=== PATIENT | female | born 1995 | race Caucasian/White ===

== ENCOUNTER → 2018-02-23 18:35 | Outpatient (CLI) | payer MEDICAID, SELFPAY ==
[2018-02-23 21:28] LABS: Chlamydia Trachomatis by PCR Negative (Negative); Neisserai gonorrhoeae by PCR Negative (Negative); Probe Check PASS; Sample Adequacy Control PASS; Specimen Processing Control PASS
== END ==
PROVIDERS: Family Provider Pediatrics; PCP Pediatrics; Visit Provider Obstetrics & Gynecology
DX: Z12.4 Encounter for screening for malignant neoplasm of cervix (principal); Z32.01 Encounter for pregnancy test, result positive; Z11.3 Encounter for screening for infections with a predominantly sexual mode of transmission
CPT/HCPCS: 87491; 87591; 88175; G0145

== ENCOUNTER → 2018-03-02 16:16 | Outpatient (CLI) | payer MEDICAID, SELFPAY ==
[2018-03-02 17:46] LABS: Absolute Lymphocyte Count 2.24 X10^3/ul (0.83-4.51); Absolute Neutrophil Count 6.6 X10^3/uL (2.0-7.7); Basophil# 0.02 X10^3/uL; Basophil% 0.2 % (0-1); Eosinophil# 0.19 X10^3/uL; Hematocrit 41.6 % (37-47); Lymphocyte # 2.24 X10^3/ul (4.0); Lymphocyte % 23.2 % (19-41); Mean Corp Hgb Conc 33.7 g/gl (32-36); Mean Corpuscular Hgb 29.7 pg (27.0-32.0); Mean Corpuscular Volume 88.3 fL (81-99); Mean Platelet Vol. 11.8 fl (6.2-12.0); Monocyte# 0.57 X10^3/uL; Monocyte% 5.9 % (0-10); Neutrophil # 6.63 X10^3/uL (2.7-7.7); Neutrophil % 68.5 % (47-70); Platelet Count 219 K/mm3 (150-450); RBC Distribution Width SD 42.1 fl (35.1-43.9); Red Blood Count 4.71 M/mm3 (4.2-5.4); White Blood Count 9.7 K/mm3 (4.4-11.0)
[2018-03-02 17:47] LABS: Color, Urine Yellow (Yellow); Glucose, Dipstick Normal (Normal); Ketone-Dipstick 15 mg/dl (Negative); Leukocyte Esterase-Dipstick 25 /ul (Negative); Nitrite-Dipstick Negative (Negative); Occult Blood-Urine Negative /ul (Negative); Protein-Dipstick 15 mg/dl (Negative); Specific Gravity, Urine 1.025 (1.002-1.030); Urine Bilirubin Dipstick Negative (Negative); Urine Clarity Turbid (Clear); Urine Urobilinogen 4 mg/dl (Normal)
[2018-03-02 17:50] LABS: POSITIVE COUNT NO; POSITIVE DIFFERENTIAL NO; POSITIVE MORPHOLOGY NO
[2018-03-02 18:12] LABS: COTININE Drug Screen Positive (<200 ng/mL)
[2018-03-02 18:14] LABS: Amphetamine Urine VISTA NEGATIVE (<1000 ng/mL); Barbiturate Urine VISTA NEGATIVE (< 200 ng/mL); Benzodiazepine Urine VISTA NEGATIVE (< 200 ng/mL); Cocaine Urine VISTA NEGATIVE (< 300 ng/mL); Ecstacy Urine VISTA NEGATIVE (< 500 ng/mL); Methadone Urine VISTA NEGATIVE (< 300 ng/mL); PCP Urine VISTA NEGATIVE (< 25 ng/mL); THC Urine VISTA NEGATIVE (< 50 ng/mL); Vista UDS pH Range 5
[2018-03-02 18:38] LABS: Thyroid Stim Hormone (TSH) 0.43 uIU/mL (0.358-3.74)
[2018-03-02 19:16] LABS: HIV - WCH Non-Reactive (Nonreactive); Rubella IgG 34.7 IU/mL
[2018-03-04 01:05] LABS: Prenatal RPR NONREACTIVE (NONREACTIVE)
[2018-03-04 12:03] LABS: HEPATITIS B SURFACE AG Negative (Negative); Hep C Antibodies <0.1 s/co ratio (0.0-0.9)
== END ==
PROVIDERS: Visit Provider Obstetrics & Gynecology
DX: Z34.81 Encounter for supervision of other normal pregnancy, first trimester (principal)
CPT/HCPCS: 36415; 80307; 81002; 84443; 85025; 86703; 86762; 86803; 87340

== ENCOUNTER 2018-04-16 17:48 | Emergency (ER) | payer MEDICAID, SELFPAY ==
[2018-04-16 17:50] VITALS: BP 124/73; PULSE 100; RESP 18; TEMP 36.6; O2SAT 98; BMI 43.3
--- NOTE | 2018-04-16 18:04 | ED.VISSUMM ---
- ER Visit Summary Date of Service: 04/16/18 Chief Complaint: Nausea, abdominal cramping History of Present Illness: The patient is a 22 F who is 14 weeks and 3 days gestation presents to the emergency department with 4 days of abdominal cramping. Patient states that she has had some upper abdominal pain for the past 3 or 4 days. She has had hyperemesis through the . She was started on Zofran, but she states it gave her worsening headache so she stopped. Her hyperemesis is actually improving since she is entered the second trimester. She states today at work, she got very dizzy and had some upper abdominal cramping. She has no history of prior abdominal surgery. She denies any fevers or chills. She denies any diarrhea. She has had no vaginal bleeding or discharge. She has had confirmed intrauterine by ultrasound as an outpatient. She follows with Dr. Roberts. Physical Examination: Vital signs reviewed General: Well-nourished, well-developed Head: Normocephalic, atraumatic Eyes: Pupils equal and reactive, extraocular muscles intact Neck, supple, no lymphadenopathy Heart: Regular rate and rhythm Respiratory: No distress, clear bilaterally Abdomen: Soft, mildly tender in the midepigastric area without rebound or guarding, no Blanco sign, no right lower quadrant pain or tenderness, nondistended, no peritoneal signs Back: Nontender Extremities: Nontender, no edema, no cords Skin: Normal color no rash Neuro: Alert and oriented, no focal or lateralizing deficits Test Results: [] Emergency Department Course and Treatment: IV was established. I did do a bedside ultrasound. Patient has single live intrauterine . There is good activity. heart rate is in the 140s-150s and reactive. I also did right upper quadrant. There is no gallbladder wall thickening, pericholecystic edema, or other concerning process. Screening labs are obtained and are unremarkable. The patient's symptoms had improved. I do feel this may be more likely gastritis especially given . The patient be started on Pepcid. Her repeat exam is soft and nontender. Again, she has no pain in her lower quadrants. It is all in the midepigastric area. The patient will be discharged, return with any worsening symptoms. Treatment Plan: [] Disposition: Discharge Impression:. Midepigastric abdominal pain and This note was generated with Dragon dictation software. It may contain incorrect words, spelling, and punctuation that were not noted in review of the chart prior to signing ED Disposition - Plan for ED Patient: Chief Complaint: Abd Pain Instructions: ED PUD Vs Gastritis Prescriptions: Famotidine [Pepcid] 20 mg PO BID #28 tab Referrals: Care Physician,No Primary [Primary Care Provider] -
[2018-04-16] MEDS: 0.9% Normal Saline 1,000 ML 1000 ML IV (18:06)
[2018-04-16 18:23] LABS: Absolute Lymphocyte Count 2.15 X10^3/ul (0.83-4.51); Absolute Neutrophil Count 5.3 X10^3/uL (2.0-7.7); Basophil# 0.02 X10^3/uL; Basophil% 0.2 % (0-1); Eosinophil# 0.25 X10^3/uL; Eosinophils% 3.1 % (0-5); Hematocrit 37.9 % (37-47); Hemoglobin 12.8 g/dl (12.0-15.0); Lymphocyte # 2.15 X10^3/ul (4.0); Lymphocyte % 26.3 % (19-41); Mean Corp Hgb Conc 33.8 g/gl (32-36); Mean Corpuscular Hgb 29.6 pg (27.0-32.0); Mean Corpuscular Volume 87.5 fL (81-99); Mean Platelet Vol. 10.9 fl (6.2-12.0); Monocyte# 0.41 X10^3/uL; Neutrophil # 5.34 X10^3/uL (2.7-7.7); Neutrophil % 65.3 % (47-70); Platelet Count 161 K/mm3 (150-450); RBC Distribution Width CV 13.2 % (11.6-14.6); RBC Distribution Width SD 42.3 fl (35.1-43.9); Red Blood Count 4.33 M/mm3 (4.2-5.4); White Blood Count 8.2 K/mm3 (4.4-11.0)
[2018-04-16 18:24] LABS: POSITIVE COUNT NO; POSITIVE DIFFERENTIAL NO; POSITIVE MORPHOLOGY NO
[2018-04-16 18:37] LABS: ALB/GLOB Ratio 0.9 RATIO (0.9-2.4); AST(SGOT) 9 U/L (15-37); Alanine Aminotransfer ALT/SGPT 17 U/L (13-56); Albumin, Serum 3.2 g/dL (3.2-5.0); Alkaline Phosphatase 44 U/L (45-117); Anion Gap 6 (5-15); BUN 4 mg/dL (7-18); BUN/Creat Ratio 7.5 RATIO (10-20); Calcium,Total 8.6 mg/dL (8.5-10.1); Chloride 105 mmol/L (98-107); Creatinine, Serum 0.53 mg/dL (0.55-1.02); EST Glomerular Filtration Rate 151 mL/min (>60); Est Glom Filt Rate - Afr Amer 183 mL/min (>60); Estimated Creatinine Clearance 155.86 ml/min; Globulin 3.5 g/dL (2.2-4.2); Glucose 92 mg/dL (74-106); Lipase 80 U/L (73-393); Potassium 3.7 mmol/L (3.5-5.1); Protein, Total 6.7 g/dL (6.4-8.2); Sodium Level 137 mmol/L (136-145)
[2018-04-16 18:56] VITALS: BP 111/65; PULSE 64; RESP 16
== END 2018-04-16 19:02 | disposition home or self-care (01) ==
LOC: ED 17:59
PROVIDERS: Emergency Provider Emergency Medicine
DX: O99.89 Other specified diseases and conditions complicating pregnancy, childbirth and the puerperium (principal); R10.13 Epigastric pain; K29.70 Gastritis, unspecified, without bleeding; O21.0 Mild hyperemesis gravidarum; O99.332 Smoking (tobacco) complicating pregnancy, second trimester; F17.200 Nicotine dependence, unspecified, uncomplicated; Z3A.14 14 weeks gestation of pregnancy
CPT/HCPCS: 80053; 83690; 85025; 96360; 99283; J7030

== ENCOUNTER → 2018-04-27 15:51 | Outpatient (CLI) | payer MEDICAID, SELFPAY ==
[2018-05-04 03:06] LABS: AFP MoM Value 0.78 (.); AFP Value-EIA 18.3 ng/mL (.); Comment Report (.); DIA MoM Value 1.58 (.); DSR (By Age) 1091 (.); DSR (Second Trimester) 3824 (.); Gestat. Age Based On As provided (.); Gestational Age 16.1 WEEKS (.); Insulin Dep Diabetes No (.); Maternal Age At EDD 23.4 yr (.); hCG MoM 0.67 (.); hCG Value 17827 mIU/mL (.)
== END ==
PROVIDERS: Visit Provider Obstetrics & Gynecology
DX: Z34.82 Encounter for supervision of other normal pregnancy, second trimester (principal)
CPT/HCPCS: 36415; 82105; 82677; 84702; 86336

== ENCOUNTER 2018-06-27 00:28 | Emergency (ER) | payer MEDICAID, SELFPAY ==
[2018-06-27 00:28] VITALS: BP 116/61; PULSE 91; RESP 16; TEMP 36.9; O2SAT 98; BMI 45.9
--- NOTE | 2018-06-27 01:36 | ED.VISSUMM ---
- ER Visit Summary Date of Service: 06/27/18 Chief Complaint: abscess on abdomen History of Present Illness: The patient is a 23 F female who is 25 weeks who presents for an abscess on her abdomen. Patient states she noticed it approximately 1 week ago on her lower abdomen, and popped it 2 days ago. Since then she has had surrounding redness and pain. She denies any fever, nausea or vomiting, or any other complaints. She is concerned that she has not felt the baby moving today. Patient denies any other medical problems. Physical Examination: Vital signs: afebrile, hemodynamically stable, no hypoxia on room air General: well nourished, well developed, obese, in no distress Skin: warm, dry, 10 cm x 15 cm area of erythema and mild induration on the lower abdomen and pannus. The inferior pannus has a 3 cm fluctuant area of swelling. HEENT: normocephalic and atraumatic; PERRL, EOMI, moist mucous membranes Cardiovascular: regular rate and rhythm without murmurs, no peripheral edema, 2+ pulses all distal extremities Respiratory: No increased work of breathing, lungs are clear to auscultation bilaterally, no rales, rhonchi or wheezing Abdominal: Abdomen is soft, nontender with normoactive bowel sounds, no guarding or rebound, no masses MSK: Moves all extremities, no deformities, normal strength Neuro: Awake and alert, oriented ?4. No facial droop, sensation and motor function intact and symmetric Test Results: [] Emergency Department Course and Treatment: Bedside ultrasound was performed over the area of fluctuance on the pannus, showing a concerning pocket of pus. An ultrasound was also performed of the fetus, showing good movement and heart rate of 150 bpm. An incision and drainage was performed after obtaining verbal consent. The area was cleansed with Shur-Clens. 3 cc of lidocaine was locally infiltrated around the abscess site. A 1 cm incision was made using an 11 blade over the area of maximum fluctuance. Small amount of pus was returned. The abscess cavity was explored with curved hemostats to break up any loculations. Copious irrigation using a syringe with sterile saline of the abscess cavity. Patient tolerated the procedure well. The margins of the cellulitis were marked with a skin marker. Patient was started on Keflex for cellulitis. Dual therapy is not an option at this time given the patient is . She was told if no improvement in the margins of erythema after 24-48 hours of antibiotic use, or if they progress after 24-48 hours despite antibiotic use, she should return for another examination. Patient was discharged home, very well-appearing. Treatment Plan: [] Disposition: [] Impression: Abscess on the pannus with surrounding cellulitis This note was generated with [email or web address] dictation software. It may contain incorrect words, spelling, and punctuation that were not noted in review of the chart prior to signing ED Disposition - Plan for ED Patient: Disposition: Home or Assisted Living Chief Complaint: Abscess Instructions: ED Abscess IandD, ED Infec Skin Cellulitis Prescriptions: Cephalexin [Keflex] 500 mg PO Q6 #40 cap Referrals: Tee Roberts MD [STAFF PHYSICIAN] - 3-5 Days if not improving Care Physician,No Primary [Primary Care Provider] - Additional Instructions: Take your antibiotic 4 times a day for the entire 10 days, even if your skin infection is better before the antibiotic is completed. It is very important to finish the antibiotic to make sure the infection is completely gone. Stop it only if another doctor tells you to. The site of abscess drainage will continue to drain. Keep bulky dressing on it to protect her clothing. If the surrounding redness gets worse after 24-48 hours of antibiotic use, if you develop a fever, or have any other concerning symptoms, please return immediately to the emergency department for another evaluation. If you have any worsening of your condition or any new concerning symptoms, please return immediately to the emergency department for another evaluation.
[2018-06-27 01:50] VITALS: BP 123/60; PULSE 87; RESP 15; O2SAT 99
[2018-06-27] MEDS: Cephalexin 250 MG Capsule 500 MG PO (01:50)
== END 2018-06-27 01:51 | disposition home or self-care (01) ==
PROVIDERS: Emergency Provider Emergency Medicine
DX: O99.89 Other specified diseases and conditions complicating pregnancy, childbirth and the puerperium (principal); L02.211 Cutaneous abscess of abdominal wall; L03.311 Cellulitis of abdominal wall; O99.212 Obesity complicating pregnancy, second trimester; E66.9 Obesity, unspecified; Z3A.25 25 weeks gestation of pregnancy; Z87.891 Personal history of nicotine dependence
CPT/HCPCS: 10060; 99283

== ENCOUNTER → 2018-07-20 15:27 | Outpatient (CLI) | payer MEDICAID, SELFPAY ==
[2018-07-20 17:11] LABS: Hematocrit 36.8 % (37-47); Hemoglobin 12.3 g/dl (12.0-15.0); Mean Corp Hgb Conc 33.4 g/gl (32-36); Mean Corpuscular Hgb 30.3 pg (27.0-32.0); Mean Corpuscular Volume 90.6 fL (81-99); Mean Platelet Vol. 11.8 fl (6.2-12.0); Platelet Count 197 K/mm3 (150-450); RBC Distribution Width SD 42.5 fl (35.1-43.9); Red Blood Count 4.06 M/mm3 (4.2-5.4); White Blood Count 9.2 K/mm3 (4.4-11.0)
[2018-07-20 17:24] LABS: Scan Indicated on CBC? Y/N NO
[2018-07-20 17:40] LABS: Glucose Challenge Gest 1H 50g 104 mg/dL (70-140)
== END ==
PROVIDERS: Visit Provider Obstetrics & Gynecology
DX: Z34.83 Encounter for supervision of other normal pregnancy, third trimester (principal)
CPT/HCPCS: 36415; 82950; 85027

== ENCOUNTER → 2018-09-14 16:51 | Outpatient (CLI) | payer MEDICAID, SELFPAY | PROVIDERS: Visit Provider Obstetrics & Gynecology | DX: Z36.85 Encounter for antenatal screening for Streptococcus B (principal) | CPT/HCPCS: 87081 ==